=== PATIENT | female | born 1960 | race American Indian/Alaskan Native ===

== ENCOUNTER 2021-02-24 18:56 | Emergency (ER) | payer OTHER ==
[2021-02-24 20:13] VITALS: BP 175/68
--- NOTE | 2021-02-24 22:26 | Emergency Department Report ---
ED Extremity Problem HPI - General Chief complaint: Extremity Problem,Nontraumatic Stated complaint: LEFT LEG PAIN AND SWELLING Source: patient Mode of arrival: Ambulatory Limitations: No Limitations - History of Present Illness Initial comments: Patient is a 61-year-old -[place] female with a history of fcm-btayeto-knakrimoy diabetes, chronic osteoarthritis and prior DVT in the left lower extremities who presents to the ED with complaint of acute onset persistent worsening left knee joint pain that radiates to the left calf for the last 2 weeks, worse in the last 2 days. Patient states that the pain has been persistent, constant and worse at rest. Patient states that she was advised to come to the ED by her primary care physician to rule out any evidence of DVT. Patient denies chest pain, shortness of breath, fever, chills, nausea, vomiting, heavy lifting, fall, traumatic injury, numbness and tingling or weakness of lower extremities bilaterally, low back pain or hip pain or neck pain. MD Complaint: extremity pain (left knee and lower leg pain), joint paint (left knee) -: Sudden, week(s) (2) Location: left, lower extremity (knee and lower leg) History of Same: Yes -: Yes arthralgia, No fever, No associated dyspnea Radiation: none Severity scale (0 -10): 6 Quality: aching, sharp Consistency: constant Improves with: nothing Worsens with: weight bearing, exertion, palpation Associated Symptoms: denies other symptoms, arthralgias (left knee). denies: chest pain, shortness of breath, fever, myalgias, rash - Related Data Previous Rx's Medication Instructions Recorded Last Taken Type Naproxen 500 mg PO Q12H PRN #24 tablet 02/25/21 Unknown Rx Allergies Allergy/AdvReac Type Severity Reaction Status Date / Time No Known Allergies Allergy Unverified 02/24/21 20:09 ED Review of Systems ROS: Stated complaint: LEFT LEG PAIN AND SWELLING Other details as noted in HPI Constitutional: denies: chills, fever Eyes: denies: eye pain, eye discharge, vision change ENT: denies: ear pain, throat pain Respiratory: denies: cough, shortness of breath, wheezing Cardiovascular: denies: chest pain, palpitations Endocrine: no symptoms reported Gastrointestinal: denies: abdominal pain, nausea, diarrhea Genitourinary: denies: urgency, dysuria, discharge Musculoskeletal: arthralgia (left knee pain; left lower leg pain), myalgia. denies: back pain, joint swelling Skin: denies: rash, lesions Neurological: denies: headache, weakness, paresthesias Psychiatric: denies: anxiety, depression Hematological/Lymphatic: denies: easy bleeding, easy bruising ED Past Medical Hx - Past Medical History Hx Diabetes: Yes (pre-diabetes) Hx Deep Vein Thrombosis: Yes Hx Arthritis: Yes - Surgical History Additional Surgical History: hernia - Social History Smoking Status: Never Smoker Substance Use Type: None - Medications Home Medications: Home Medications Medication Instructions Recorded Confirmed Last Taken Type Naproxen 500 mg PO Q12H PRN #24 tablet 02/25/21 Unknown Rx ED Physical Exam - General Limitations: No Limitations General appearance: alert, in no apparent distress - Head Head exam: Present: atraumatic, normocephalic, normal inspection - Eye Eye exam: Present: normal appearance, PERRL, EOMI Pupils: Present: normal accommodation - ENT ENT exam: Present: normal exam, normal orophraynx, mucous membranes moist, TM's normal bilaterally, normal external ear exam - Neck Neck exam: Present: normal inspection, full ROM. Absent: tenderness - Respiratory Respiratory exam: Present: normal lung sounds bilaterally. Absent: respiratory distress, wheezes, rhonchi, chest wall tenderness, accessory muscle use, decreased breath sounds - Cardiovascular Cardiovascular Exam: Present: normal rhythm, bradycardia, normal heart sounds. Absent: systolic murmur, diastolic murmur, rubs, gallop - GI/Abdominal GI/Abdominal exam: Present: soft, normal bowel sounds. Absent: tenderness, guarding, rebound, hyperactive bowel sounds, hypoactive bowel sounds - Extremities Exam Extremities exam: Present: normal inspection, tenderness (Palpable left knee tenderness; mild left calf tenderness to palpation), normal capillary refill - Back Exam Back exam: Present: normal inspection, full ROM, tenderness (Palpable lumbosacral paraspinal musculoskeletal tenderness), muscle spasm, paraspinal tenderness. Absent: CVA tenderness (R), CVA tenderness (L), vertebral tenderness - Neurological Exam Neurological exam: Present: alert, oriented X3, CN II-XII intact, normal gait, reflexes normal - Psychiatric Psychiatric exam: Present: normal affect, normal mood - Skin Skin exam: Present: warm, dry, intact, normal color. Absent: rash ED Course Vital Signs 05/21/21 20:10 Temperature 98.8 F Pulse Rate 58 L Respiratory 18 Rate Blood Pressure 175/68 O2 Sat by Pulse 100 Oximetry ED Medical Decision Making - Radiology Data Radiology results: report reviewed, image reviewed [facility] [address] [place] [address] Vascular Lab Report Signed Patient: HILLARY YAÑEZ MR#: [id number] : 1960 Acct:[id number] Age/Sex: 61 / F ADM Date: 02/24/21 Loc: ED Attending Dr: Ordering Physician: LUCRECIA VANG Date of Service: 02/24/21 Procedure(s): VL venous duplex LE LT Accession Number(s): [id number] cc: LUCRECIA VANG DUPLEX DOPPLER LOWER EXTREMITY VEINS, LEFT INDICATION / CLINICAL INFORMATION: Left knee and lower leg pain TECHNIQUE: Duplex doppler imaging was performed through the veins of the left lower extremity using venous compression and other maneuvers. COMPARISON: None available. FINDINGS: COMMON FEMORAL VEIN: Negative. SUPERFICIAL FEMORAL VEIN: Negative. POPLITEAL VEIN: Negative. CALF VEINS: Negative. ADDITIONAL FINDINGS: None. IMPRESSION: No sonographic evidence for DVT Signer Name: Ayush Dos Santos MD Signed: 02/24/2021 11:23 PM Workstation Name: [id number] Transcribed By: GJ Dictated By: Ayush Dos Santos MD Electronically Authenticated By: Ayush Dos Santos MD Signed Date/Time: 02/24/212322 DD/ 21 TD/TT: - Medical Decision Making This is a 61-year-old -[place] female with a history of iyd-ziujacm-wdkdzlpvo diabetes, chronic osteoarthritis and prior DVT in the left lower extremities who presents to the ED with complaint of acute onset persistent worsening left knee joint pain that radiates to the left calf for the last 2 weeks, worse in the last 2 days. Patient states that the pain has been persistent, constant and worse at rest. Patient states that she was advised to come to the ED by her primary care physician to rule out any evidence of DVT. In the ED, patient is alert and oriented x3 and is not in distress. Patient was treated for pain in the ED and bilateral lower extremity Doppler ultrasound showed no sonographic evidence of DVT. On reevaluation, patient pain is well controlled medication. Patient was discharged home on pain medications and advised to follow-up with her primary care physician in 5 to 7 days for reevaluation or return to the ED immediately if symptoms get worse. - Differential Diagnosis Knee osteoarthritis; DVT; Chronic back pain; Muscle spasm; Tendonitis Critical care attestation.: If time is entered above; I have spent that time in minutes in the direct care of this critically ill patient, excluding procedure time. ED Disposition Clinical Impression: Patellar tendonitis of left knee, Chronic osteoarthritis Muscle strain of left lower extremity Qualifiers: Encounter type: initial encounter Qualified Code(s): S86.912A - Strain of unspecified muscle(s) and tendon(s) at lower leg level, left leg, initial encounter Disposition: TO HOME OR SELFCARE Is pt being admited?: No Does the pt Need Aspirin: No Condition: Stable Instructions: Muscle Strain, [id number], Arthritis, [id number]-[id number], Tendinitis, [id number] Additional Instructions: The bilateral lower extremity Doppler ultrasound showed no evidence of DVT or blood clots. Your symptoms are likely due to acute exacerbation of your chronic osteoarthritis or muscle strain or tendinitis of your left knee joint. Therefore take medications with food, drink plenty of fluids and follow-up with your primary care physician in 5 to 7 days for reevaluation. Return to the ED immediately if symptoms get worse. Prescriptions: Naproxen 500 mg PO Q12H PRN #24 tablet PRN Reason: Pain , Severe (7-10) Referrals: MARQUEZ VARELA JR [facility] [Primary Care Provider] - 3-5 Days Time of Disposition: 01:32 Print Language: KYRGYZ
--- NOTE | 2021-02-24 23:27 | Vascular Lab Report ---
DUPLEX DOPPLER LOWER EXTREMITY VEINS, LEFT INDICATION / CLINICAL INFORMATION: Left knee and lower leg pain TECHNIQUE: Duplex doppler imaging was performed through the veins of the left lower extremity using v enous compression and other maneuvers. COMPARISON: None available. FINDINGS: COMMON FEMORAL VEIN: Negative. SUPERFICIAL FEMORAL VEIN: Negative. POPLITEAL VEIN: Negative. CALF VEINS: Negative. ADDITIONAL FINDINGS: None. IMPRESSION: No sonographic evidence for DVT Signer Name: Ayush Dos Santos MD Signed: 02/24/2021 11:23 PM Workstation Name: [id number]
== END 2021-02-25 04:09 | disposition home or self-care (01) ==
LOC: ED 18:56
DX: S86.912A Strain of unspecified muscle(s) and tendon(s) at lower leg level, left leg, initial encounter (principal); M76.52 Patellar tendinitis, left knee; M19.91 Primary osteoarthritis, unspecified site; E11.9 Type 2 diabetes mellitus without complications; Z86.718 Personal history of other venous thrombosis and embolism; Z98.890 Other specified postprocedural states; Z79.899 Other long term (current) drug therapy; X58.XXXA Exposure to other specified factors, initial encounter; Y93.89 Activity, other specified; Y92.89 Other specified places as the place of occurrence of the external cause; Y99.8 Other external cause status